=== PATIENT | male | born 1975 | race Caucasian/White ===

== ENCOUNTER 2021-01-02 02:29 | Emergency (ER) | payer OTHER ==
[2021-01-02] MEDS ORDERED: AMOX TR/POT CLAV 500MG/125MG TABLETS (FP) ONE (02:49)
[2021-01-02] MEDS ORDERED: AMOX TR/POT CLAV 500MG/125MG TABLETS (FP) PO ONE (02:50)
[2021-01-02 02:56] VITALS: BP 144/97; PULSE 89; TEMP 98.3; BMI 39.5
== END 2021-01-02 03:01 | disposition home or self-care (01) ==
LOC: FER 02:29
DX: H66.92 Otitis media, unspecified, left ear (principal); H60.92 Unspecified otitis externa, left ear
CPT/HCPCS: 99283-25

== ENCOUNTER 2021-02-26 21:22 | Emergency (ER) | payer OTHER ==
[2021-02-26 21:52] VITALS: BP 128/87; PULSE 90; TEMP 99.4; BMI 35.4
[2021-02-26 21:56] LABS: BASO % 1.7 % (0-2.0); EOS % 4.2 % (0-4.5); HEMATOCRIT 50.3 % (35.4-49); HEMOGLOBIN 16.9 GM/dl (11.7-16.9); LYMPH % 25.8 % (8-40); MCH 28.8 pg (25.7-33.7); MCHC 33.7 g/dl (32.0-35.9); MEAN CELL VOLUME 85.4 fl (80-96); MEAN PLT VOLUME 7.8 fl (7.5-11.1); MONO % 6.7 % (3.8-10.2); NEUT % 61.6 % (42.8-82.8); PLATELET COUNT 227 10^3/uL (134-434); RBC 5.89 M/mm3 (4.00-5.60); RDW 12.9 % (11.9-15.9); WHITE BLOOD COUNT 8.7 K/mm3 (4.0-10.8)
[2021-02-26 22:08] LABS: ALBUMIN 4.9 g/dl (3.4-5.0); BILIRUBIN,TOTAL 0.8 mg/dl (0.2-1); CALCIUM 9.6 mg/dl (8.5-10); CREATININE 0.9 mg/dl (0.55-1.3); TOT PROT 7.9 g/dl (6.4-8.2)
[2021-02-26] MEDS ORDERED: SODIUM CHLORIDE 1,000 ML IV ONE (22:09)
== END 2021-02-27 00:29 | disposition home or self-care (01) ==
LOC: FER 21:22
PROC: 3E0337Z Introduction of Electrolytic and Water Balance Substance into Peripheral Vein, Percutaneous Approach (ICD-10-PCS; principal; 2021-02-26)
DX: R10.9 Unspecified abdominal pain (principal)
CPT/HCPCS: 36415; 74177-TC; 80053; 83690; 85025; 99284-25